=== PATIENT | male | born 1960 | race Caucasian/White ===

== ENCOUNTER 2016-12-25 11:08 | Emergency (ER) | payer MEDICAID ==
[~2016-12-25] VITALS: Ht 167.6 cm; Wt 101.1 kg
[2016-12-25 11:11] VITALS: BP 189/96
[2016-12-25] MEDS ORDERED: LIDOCAINE 1%, 20ML ONE (12:18)
[2016-12-25] MEDS ORDERED: LIDOCAINE 1%, 20ML SQ ONE (12:30)
== END 2016-12-25 13:16 | disposition home or self-care (01) ==
LOC: ED 13:00
DX: L02.413 Cutaneous abscess of right upper limb (principal)
CPT/HCPCS: 10060